=== PATIENT | male | born 1990 | race Caucasian/White ===

== ENCOUNTER 2017-08-02 11:10 | Emergency (ER) | payer SELFPAY ==
[2017-08-02] MEDS ORDERED: Albuterol/Ipratropium 3.0-0.5 MG/3 ML Neb Soln NEB ONE (11:27)
--- NOTE | 2017-08-02 11:28 | EDM.PDOC ---
ED HPI GENERAL MEDICAL PROBLEM - General Chief Complaint: General Stated Complaint: PAIN ON RIGHT SIDE OF CHEST Time Seen by Provider: 08/02/17 11:13 Source of Information: Reports: Patient History Limitations: Reports: No Limitations - History of Present Illness INITIAL COMMENTS - FREE TEXT/NARRATIVE: History of present illness: []Patients and cold symptoms for a week and developed right-sided sharp chest pain yesterday. Pain is worse when he breathes and states he feels short of breath. He does smoke cigarettes and denies any history of asthma or chronic bronchitis. Review of systems: As per history of present illness and below otherwise all systems reviewed and negative. Past medical history: As per history of present illness and as reviewed below otherwise noncontributory. Surgical history: As per history of present illness and as reviewed below otherwise noncontributory. Social history: No reported history of drug or alcohol abuse. Family history: As per history of present illness and as reviewed below otherwise noncontributory. Physical exam: General: Well developed, well nourished in NAD HEENT: Atraumatic, normocephalic, pupils reactive, negative for conjunctival pallor or scleral icterus, mucous membranes moist, throat clear, neck supple, nontender, trachea midline. Lungs: Clear to auscultation, breath sounds equal bilaterally, right anterior chest tender to palpation however he states this is not the same pain he has with breathing. No accessory muscle use no crepitance Heart: S1S2, regular, negative for clicks, rubs, or JVD. Abdomen: Soft, nondistended, nontender. Negative for masses or hepatosplenomegaly. Negative for costovertebral tenderness. Pelvis: Stable nontender. Genitourinary: Deferred. Rectal: Deferred. Extremities: Atraumatic, negative for cords or calf pain. Neurovascular unremarkable. Neuro: Awake, alert, oriented. Cranial nerves II through XII unremarkable. Cerebellum unremarkable. Motor and sensory unremarkable throughout. Exam nonfocal. Diagnostics: []Chest x-ray negative Therapeutics: []Patient was given albuterol states he feels like he is moving more air but his pain still hurts with breathing. Impression: []Pleurisy Plan: []Ibuprofen or Aleve for pain stop smoking Definitive disposition and diagnosis as appropriate pending reevaluation and review of above. Right Chest Pain Score (Numeric/FACES): 7 - Related Data Allergies Allergy/AdvReac Type Severity Reaction Status Date / Time No Known Allergies Allergy Verified 08/02/17 11:23 Home Meds: Home Meds . [No Known Home Meds] 08/02/17 [History] ED ROS GENERAL - Review of Systems Review Of Systems: See Below (See history of present illness) ED EXAM, GENERAL - Physical Exam Exam: See Below (See history of present illness) Course - Vital Signs Last Recorded V/S: Last Vital Signs Temp 36.9 C 08/02/17 11:20 Pulse 93 08/02/17 11:20 Resp 18 08/02/17 11:20 BP 134/70 08/02/17 11:20 Pulse Ox 100 08/02/17 11:20 - Orders/Labs/Meds Orders: Active Orders 24 hr Category Date Time Status RT Aerosol Therapy [RC] ASDIRECTED Care 08/02/17 11:28 Active Chest 2V [CR] Stat Exams 08/02/17 11:26 Taken Ibuprofen [Motrin] Med 08/02/17 12:12 Once 600 mg PO ONETIME ONE Meds: Medications Discontinued Medications Generic Name Dose Route Start Last Admin Trade Name Fredyq PRN Reason Stop Dose Admin Albuterol/Ipratropium 3 ml 08/02/17 11:27 08/02/17 11:42 Duoneb 3.0-0.5 Mg/3 Ml NEB 08/02/17 11:28 3 ml ONETIME ONE Administration Departure - Departure Time of Disposition: 12:14 Disposition: Home, Self-Care 01 Condition: Good Clinical Impression: Pleurisy - Discharge Information Referrals: PCP,None [Primary Care Provider] - Forms: ED Department Discharge Additional Instructions: The following information is given to patients seen in the emergency department who are being discharged to home. This information is to outline your options for follow-up care. We provide all patients seen in our emergency department with a follow-up referral. The need for follow-up, as well as the timing and circumstances, are variable depending upon the specifics of your emergency department visit. If you don't have a primary care physician on staff, we will provide you with a referral. We always advise you to contact your personal physician following an emergency department visit to inform them of the circumstance of the visit and for follow-up with them and/or the need for any referrals to a consulting specialist. The emergency department will also refer you to a specialist when appropriate. This referral assures that you have the opportunity for follow-up care with a specialist. All of these measure are taken in an effort to provide you with optimal care, which includes your follow-up. Under all circumstances we always encourage you to contact your private physician who remains a resource for coordinating your care. When calling for follow-up care, please make the office aware that this follow-up is from your recent emergency room visit. If for any reason you are refused follow-up, please contact the [facility] Emergency Department at and asked to speak to the emergency department charge nurse. Ibuprofen or Aleve for pain. Follow-up with primary care. I recommend that you quit smoking [facility] [address] [place] [id number] - My Orders Last 24 Hours: My Active Orders 08/02/17 11:26 Chest 2V [CR] Stat 08/02/17 11:28 RT Aerosol Therapy [RC] ASDIRECTED 08/02/17 12:12 Ibuprofen [Motrin] 600 mg PO ONETIME ONE - Assessment/Plan Last 24 Hours: My Active Orders 08/02/17 11:26 Chest 2V [CR] Stat 08/02/17 11:28 RT Aerosol Therapy [RC] ASDIRECTED 08/02/17 12:12 Ibuprofen [Motrin] 600 mg PO ONETIME ONE
[2017-08-02] MEDS ORDERED: Ibuprofen 600 MG Tab PO ONE (12:12)
[2017-08-02 12:24] VITALS: BP 138/71
--- NOTE | 2017-08-03 18:41 | CR ---
EXAM DATE: 08/02/17 PATIENT'S AGE: 27 Patient: LISBETH MULLINS Facility: [place], [place] Site . Site : 1990 Study: XRay Chest [id number]/24/2017 11:43:22 AM Ordering Physician: Bryan Gavin Final Report: INDICATION: Pain/shortness of breath. Technique: PA and lateral chest x-ray. Findings: Mild peribronchial cuffing in the right suprahilar region consistent bronchial inflammation. Heart size normal. Lungs clear without infiltrate. Chest otherwise negative. Dictated by Leon Dowd MD @ Aug 02 2017 11:59AM (Electronic Signature) Report Signed by Proxy. TRACI
== END 2017-08-02 12:22 | disposition home or self-care (01) ==
LOC: MW.ED 11:10
DX: R09.1 Pleurisy (principal)
CPT/HCPCS: 71020; 71020-26; 94664; 99282; 99283

== ENCOUNTER 2017-09-14 10:12 | Emergency (ER) | payer SELFPAY ==
--- NOTE | 2017-09-14 10:52 | EDM.PDOC ---
ED HPI GENERAL MEDICAL PROBLEM - General Chief Complaint: Upper Extremity Injury/Pain Stated Complaint: INJURED HAND Time Seen by Provider: 09/14/17 10:13 Source of Information: Reports: Patient History Limitations: Reports: No Limitations - History of Present Illness INITIAL COMMENTS - FREE TEXT/NARRATIVE: HISTORY AND PHYSICAL: History of present illness: Patient is a 27-year-old male who presents to the emergency room with complaints of left hand pain since Thursday. Patient states he was wrestling with a friend and felt minor pain to the left hand near the ulnar side. Since that time he has had increased pain, redness, swelling to the area which is not improved with rest or ice. Pain is increased when closing his fist and grasping. Denies any previous injury to the affected extremity. Denies any numbness or tingling. Review of systems: As per history of present illness and below otherwise all systems reviewed and negative. Past medical history: As per history of present illness and as reviewed below otherwise noncontributory. Surgical history: As per history of present illness and as reviewed below otherwise noncontributory. Social history: No reported history of drug or alcohol abuse. Family history: As per history of present illness and as reviewed below otherwise noncontributory. Physical exam: HEENT: Atraumatic, normocephalic, pupils reactive, negative for conjunctival pallor or scleral icterus, mucous membranes moist, throat clear, neck supple, nontender, trachea midline. Lungs: Clear to auscultation, breath sounds equal bilaterally, chest nontender. Heart: S1S2, regular, negative for clicks, rubs, or JVD. Abdomen: Soft, nondistended, nontender. Negative for masses or hepatosplenomegaly. Negative for costovertebral tenderness. Pelvis: Stable nontender. Genitourinary: Deferred. Rectal: Deferred. Extremities: Moves all extremities per self. Able to flex and extend the fingers of the left hand. No numbness or tingling. CMS is intact. Good capillary refill. Strong radial pulse. Neurovascular unremarkable. Neuro: Awake, alert, oriented. Cranial nerves II through XII unremarkable. Cerebellum unremarkable. Motor and sensory unremarkable throughout. Exam nonfocal. X-ray reading was reviewed with the patient. Instructed to use ice and elevate the extremity the next couple days. A half cast fiberglass splint was applied to prevent overuse of the hands. Instructed to use for 1-2 days. Patient voices understanding. She requested medication Strattera than Tylenol and/or ibuprofen for pain management at night. He was instructed to make sure he does not use the Tramadol (disp #10) while driving or needing to be functioning at work. Instructed to follow-up with orthopedics in the next week if pain continues. Patient voices understanding and is agreeable to plan of care. Diagnostics: X-ray of the left hand Therapeutics: Toradol Impression: Left hand injury, contusion Plan: 1. Rest, ice, elevate the affected extremity for the next couple days. 2. Follow-up with orthopedic in the next week if he continues to have any problems. Return to the ED as needed and as discussed. Definitive disposition and diagnosis as appropriate pending reevaluation and review of above. Onset Date: 09/12/17 Duration: Day(s): Location: Reports: Upper Extremity, Left Left Hand Pain Score (Numeric/FACES): 8 - Related Data Allergies Allergy/AdvReac Type Severity Reaction Status Date / Time No Known Allergies Allergy Verified 09/14/17 10:45 Home Meds: Home Meds . [No Known Home Meds] 08/02/17 [History] Past Medical History - Past Health History Medical/Surgical History: Denies Medical/Surgical History Social & Family History - Family History Family Medical History: Noncontributory Oncologic: Reports: Lung - Tobacco Use Smoking Status *Q: Current Every Day Smoker Years of Tobacco use: 11 Packs/Tins Daily: 1.5 - Caffeine Use Caffeine Use: Reports: Coffee, Energy Drinks, Soda, Tea - Alcohol Use Days Per Week of Alcohol Use: 2 Number of Drinks Per Day: 5 Total Drinks Per Week: 10 - Recreational Drug Use Recreational Drug Use: Yes Recreational Drug Type: Reports: Marijuana/Hashish Recreational Drug Use Frequency: Daily Review of Systems - Review of Systems Review Of Systems: ROS reveals no pertinent complaints other than HPI. ED EXAM, GENERAL - Physical Exam Exam: See Below (See dictation) Course - Vital Signs Last Recorded V/S: Last Vital Signs Temp 36.7 C 09/14/17 10:42 Pulse 80 09/14/17 10:42 Resp 16 09/14/17 10:42 BP 136/79 09/14/17 10:42 Pulse Ox 99 09/14/17 10:42 - Orders/Labs/Meds Orders: Active Orders 24 hr Category Date Time Status DME for Discharge [COMM] Stat Oth 09/14/17 12:38 Ordered Meds: Medications Discontinued Medications Generic Name Dose Route Start Last Admin Trade Name Chandra PRN Reason Stop Dose Admin Ketorolac Tromethamine 60 mg 09/14/17 11:06 09/14/17 11:13 Toradol IM 09/14/17 11:07 60 mg ONETIME ONE Administration Departure - Departure Time of Disposition: 12:41 Disposition: Home, Self-Care 01 Clinical Impression: Contusion Qualifiers: Encounter type: initial encounter Contusion area: hand Laterality: left Qualified Code(s): S60.222A - Contusion of left hand, initial encounter Hand injury Qualifiers: Encounter type: initial encounter Laterality: left Qualified Code(s): S69.92XA - Unspecified injury of left wrist, hand and finger(s), initial encounter - Discharge Information Referrals: PCP,None [Primary Care Provider] - Forms: ED Department Discharge Additional Instructions: My general discharge The following information is given to patients seen in the emergency department who are being discharged to home. This information is to outline your options for follow-up care. We provide all patients seen in our emergency department with a follow-up referral. The need for follow-up, as well as the timing and circumstances, are variable depending upon the specifics of your emergency department visit. If you don't have a primary care physician on staff, we will provide you with a referral. We always advise you to contact your personal physician following an emergency department visit to inform them of the circumstance of the visit and for follow-up with them and/or the need for any referrals to a consulting specialist. The emergency department will also refer you to a specialist when appropriate. This referral assures that you have the opportunity for follow-up care with a specialist. All of these measure are taken in an effort to provide you with optimal care, which includes your follow-up. Under all circumstances we always encourage you to contact your private physician who remains a resource for coordinating your care. When calling for follow-up care, please make the office aware that this follow-up is from your recent emergency room visit. If for any reason you are refused follow-up, please contact the [facility] Emergency Department at and asked to speak to the emergency department charge nurse. [facility] [address], [address] [place] [address] 1. Rest, ice, elevate the affected extremity for the next couple days. Use Tylenol and/or ibuprofen as needed [id number] for pain management. 2. Follow-up with orthopedic in the next week if he continues to have any problems. Return to the ED as needed and as discussed. - My Orders Last 24 Hours: My Active Orders 09/14/17 12:38 DME for Discharge [COMM] Stat - Assessment/Plan Last 24 Hours: My Active Orders 09/14/17 12:38 DME for Discharge [COMM] Stat
[2017-09-14] MEDS ORDERED: Ketorolac 60 MG/2 ML SDV IM ONE (11:06)
--- NOTE | 2017-09-14 12:28 | CR ---
EXAMINATION: Left hand HISTORY: Pain COMPARISON: None TECHNIQUE: 2 views FINDINGS/IMPRESSION: There is no acute osseous abnormality, dislocation, or fracture. Bone mineraliza tion and joint spaces appear normal. The radiocarpal alignment is preserved.
[2017-09-14 14:37] VITALS: BP 135/78
== END 2017-09-14 13:01 | disposition home or self-care (01) ==
LOC: MW.ED 10:12
DX: S60.222A Contusion of left hand, initial encounter (principal); F17.210 Nicotine dependence, cigarettes, uncomplicated; X58.XXXA Exposure to other specified factors, initial encounter; Y93.72 Activity, wrestling
CPT/HCPCS: 73120; 96372; 99283; J1885